=== PATIENT | male | born 1950 | race Caucasian/White ===

== ENCOUNTER 2022-10-11 06:57 | Emergency (ER) | payer OTHER ==
[2022-10-11] MEDS ORDERED: Tamsulosin 0.4 MG Cap.ER PO ONE (07:25)
[2022-10-11] MEDS ORDERED: Ketorolac 30 MG/ML SDV IVPUSH STA (07:25)
[2022-10-11] MEDS ORDERED: Sodium Chloride 0.9% 1,000 ML IV ONE (07:25)
[2022-10-11] MEDS ORDERED: Ondansetron 4 MG/2 ML SDV IVPUSH ONE (07:25)
[2022-10-11] MEDS ORDERED: HYDROmorphone 0.5 MG/0.5 ML Syringe IVPUSH ONE ×2 (07:25→11:07)
[2022-10-11] MEDS ORDERED: Iopamidol 755 Mg/ML 100 ML Bottle IVPUSH ONE (09:16)
[2022-10-11] MEDS ORDERED: Sodium Chloride 0.9% 10 ML Syringe FLUSH PRN (09:16)
[2022-10-11] MEDS ORDERED: Aspirin 81 MG Tab.Chew PO ONE (12:47)
== END 2022-10-11 13:38 | disposition home or self-care (01) ==
LOC: JD.ED 06:57
DX: N13.2 Hydronephrosis with renal and ureteral calculous obstruction (principal); I71.43 Infrarenal abdominal aortic aneurysm, without rupture; I72.8 Aneurysm of other specified arteries; Z87.891 Personal history of nicotine dependence; Z79.899 Other long term (current) drug therapy
CPT/HCPCS: 72191; 74175; 74176; 81001; 99284; A9270; J1170; J1885; J2405; J3490; J7030; Q9967

== ENCOUNTER 2023-05-30 09:30 | Day surgery (SDC) | payer MEDICARE, OTHER ==
[~2023-05-30 09:30] MED LIST: Cefuroxime 10 MG/ML SYRINGE EYERT SCH; Lidocaine 1% PF 2 ML SDV INJECT SCH; Pilocarpine 4% Ophth Soln 15 ML Bot EYERT SCH
[2023-05-30] MEDS: Polymyxin B/Trimethoprim 10 ML Bottle EYERT SCH ×3 (09:58→11:47)
[2023-05-30] MEDS: Brimonidine 0.2% Ophth Soln 5 ML Bottle EYERT SCH ×3 (10:02→11:47)
[2023-05-30] MEDS: Phenylephrine 2.5% Ophth Soln 2 ML Bot EYERT SCH ×5 (10:08→11:21)
[2023-05-30] MEDS: Tropicamide 1% Ophth Soln 3 ML Bottle EYERT SCH ×5 (10:13→11:19)
[2023-05-30] MEDS: Tetracaine HCl/PF 0.5% 4 ML Bottle EYEBOTH SCH ×4 (11:13→11:32)
== END 2023-05-30 11:56 | disposition home or self-care (01) ==
LOC: JD.SDS 09:30
PROVIDERS: ATTEND Ophthalmology
DX: H25.811 Combined forms of age-related cataract, right eye (principal); E78.00 Pure hypercholesterolemia, unspecified; J42 Unspecified chronic bronchitis; Z87.891 Personal history of nicotine dependence; Z79.899 Other long term (current) drug therapy
CPT/HCPCS: 66984; A9270; C1780; J0697; 00142; 99100; J3490

== ENCOUNTER 2023-07-25 07:52 | Day surgery (SDC) | payer MEDICARE, OTHER ==
[~2023-07-25 07:52] MED LIST changes: +Cefuroxime 10 MG/ML SYRINGE EYELF SCH; -Cefuroxime 10 MG/ML SYRINGE EYERT SCH; +Pilocarpine 4% Ophth Soln 15 ML Bot EYELF SCH; -Pilocarpine 4% Ophth Soln 15 ML Bot EYERT SCH
[2023-07-25] MEDS: Polymyxin B/Trimethoprim 10 ML Bottle EYELF SCH ×3 (08:15→10:32)
[2023-07-25] MEDS: Brimonidine 0.2% Ophth Soln 5 ML Bottle EYELF SCH ×3 (08:20→10:16)
[2023-07-25] MEDS: Phenylephrine 2.5% Ophth Soln 2 ML Bot EYELF SCH ×5 (08:25→09:57)
[2023-07-25] MEDS: Tropicamide 1% Ophth Soln 3 ML Bottle EYELF SCH ×4 (08:30→09:30)
[2023-07-25] MEDS: Tetracaine HCl/PF 0.5% 4 ML Bottle EYEBOTH SCH ×4 (09:49→10:04)
== END 2023-07-25 10:30 | disposition home or self-care (01) ==
LOC: JD.SDS 07:52
PROVIDERS: ATTEND Ophthalmology
DX: H25.812 Combined forms of age-related cataract, left eye (principal); E78.2 Mixed hyperlipidemia; Z87.891 Personal history of nicotine dependence; Z79.899 Other long term (current) drug therapy; Z96.1 Presence of intraocular lens
CPT/HCPCS: A9270-GY; J0697; J3490